=== PATIENT | male | born 1950 | race Caucasian/White ===

== ENCOUNTER → 2017-04-22 | Outpatient (CLI) | payer MEDICARE, OTHER ==
[2016-02-25 17:03] VITALS: BP 125/90
== END ==
LOC: LAB 09:08
DX: I25.5 Ischemic cardiomyopathy (principal); Z12.11 Encounter for screening for malignant neoplasm of colon; E53.8 Deficiency of other specified B group vitamins

== ENCOUNTER → 2017-05-20 | Outpatient (CLI) | payer MEDICARE, OTHER ==
[2016-02-25 17:03] VITALS: BP 125/90
== END ==
LOC: LAB 10:12
DX: Z79.01 Long term (current) use of anticoagulants (principal)

== ENCOUNTER → 2017-06-03 | Outpatient (CLI) | payer MEDICARE, OTHER ==
[2016-02-25 17:03] VITALS: BP 125/90
== END ==
LOC: LAB 14:58
DX: Z79.01 Long term (current) use of anticoagulants (principal)

== ENCOUNTER 2017-06-21 08:35 | Emergency (ER) | payer MEDICARE, OTHER ==
[2017-06-21 09:23] LABS: EOS # 0.1 (0.04-0.40); EOS % 0.7 % (0.0-4.0); HEMATOCRIT 32.8 % (42.0-52.0); LYMPH# 2.9 (1.50-4.00); MEAN CELL VOLUME 99 fl (78-100); MEAN CORPUSCULAR HEMOGLOBIN 33 pg (27-31); MEAN CORPUSCULAR HGB CONC 34 g/dL (33-37); MEAN PLATELET VOLUME 10.8 fl (7.4-10.4); MONO # 0.7 (0.20-0.80); PLATELET COUNT 293 K/mm3 (130-400); RED CELL DISTRIBUTION WIDTH 13.3 % (11.5-14.5); WHITE BLOOD COUNT 10.7 K/mm3 (4.8-10.8)
[2017-06-21 09:34] LABS: PROTHROMBIN TIME 9.2 SECONDS (9.0-12.0)
[2017-06-21 09:39] LABS: ALBUMIN 3.9 g/dL (3.5-5.0); CALCIUM 9.6 mg/dL (8.4-10.2); POTASSIUM 4.1 mmol/L (3.6-5.0); TOTAL BILIRUBIN 0.6 mg/dL (0.2-1.3); TOTAL PROTEIN 7.4 g/dL (6.3-8.2)
[2017-06-21 09:41] LABS: CKMB ISOENZYME 1.6 ng/mL (0.6-3.5)
[2017-06-21 09:45] LABS: TROPONIN-I < 0.03 ng/mL (0.00-0.06)
[2017-06-21] MEDS ORDERED: FERROUS SULFAT325 M4 PO (10:05)
[2017-06-21] MEDS ORDERED: CAPOTEN 12.512.5 MG PO (10:05)
[2017-06-21] MEDS ORDERED: CARVEDILOL6.25 MG PO (10:06)
[2017-06-21] MEDS ORDERED: NATURE'S BLEND100 M2 PO (10:06)
[2017-06-21] MEDS ORDERED: ATORVASTATIN CA40 MG PO (10:06)
[2017-06-21] MEDS ORDERED: LASIX40 M1 PO (10:09)
[2017-06-21] MEDS ORDERED: CYANOCOBAL1000 MCG/1 IM (10:09)
[2017-06-21] MEDS ORDERED: LEVOTHYROXINE0.05 MG PO (10:10)
[2017-06-21] MEDS ORDERED: OMEGA-31000 M1 PO (10:10)
[2017-06-21] MEDS ORDERED: POTASSIUM CHLO20 ME3 PO (10:10)
[2017-06-21] MEDS ORDERED: FOLIC ACID1 MG PO (10:10)
[2017-06-21] MEDS ORDERED: FLOMAX 0.40.4 MG/CAP PO (10:11)
[2017-06-21] MEDS ORDERED: NITROSTAT0.4 M1 SL (10:12)
[2017-06-21] MEDS ORDERED: ASPIR LOW81 MG PO (10:12)
[2017-06-21 13:05] VITALS: BP 123/87
== END 2017-06-21 13:09 | disposition home or self-care (01) ==
LOC: ED 08:35
PROVIDERS: Nurse Practitioner Primary Care
DX: S09.90XA Unspecified injury of head, initial encounter (principal); S51.812A Laceration without foreign body of left forearm, initial encounter; S01.112A Laceration without foreign body of left eyelid and periocular area, initial encounter; F10.10 Alcohol abuse, uncomplicated; S80.211A Abrasion, right knee, initial encounter; X58.XXXA Exposure to other specified factors, initial encounter; Y92.009 Unspecified place in unspecified non-institutional (private) residence as the place of occurrence of the external cause; I10 Essential (primary) hypertension; I25.2 Old myocardial infarction; I25.10 Atherosclerotic heart disease of native coronary artery without angina pectoris
CPT/HCPCS: J3411; J3490; J7030; L0150

== ENCOUNTER → 2017-12-02 | Outpatient (CLI) | payer MEDICARE, OTHER ==
[~2017-12-02] MED LIST: ASPIR LOW81 MG PO; ATORVASTATIN CA40 MG PO; CAPOTEN 12.512.5 MG PO; CARVEDILOL6.25 MG PO; CYANOCOBAL1000 MCG/1 IM; FERROUS SULFAT325 M4 PO; FLOMAX 0.40.4 MG/CAP PO; FOLIC ACID1 MG PO; LASIX40 M1 PO; LEVOTHYROXINE0.05 MG PO; NATURE'S BLEND100 M2 PO; NITROSTAT0.4 M1 SL; OMEGA-31000 M1 PO; POTASSIUM CHLO20 ME3 PO
[2017-12-02 10:16] LABS: EOS # 0.2 (0.04-0.40); EOS % 2.3 % (0.0-4.0); HEMOGLOBIN 12.1 g/dL (13.5-18.0); MEAN CELL VOLUME 108 fl (78-100); MEAN CORPUSCULAR HEMOGLOBIN 35 pg (27-31); MEAN CORPUSCULAR HGB CONC 33 g/dL (33-37); MEAN PLATELET VOLUME 10.9 fl (7.4-10.4); MONO # 0.9 (0.20-0.80); NEU # 5.1 (1.40-6.50); PLATELET COUNT 213 K/mm3 (130-400); RED BLOOD COUNT 3.44 M/mm3 (4.20-5.60); RED CELL DISTRIBUTION WIDTH 14.8 % (11.5-14.5); WHITE BLOOD COUNT 9.2 K/mm3 (4.8-10.8)
[2017-12-02 10:26] LABS: PROTHROMBIN TIME 9.3 SECONDS (9.0-12.0)
[2017-12-02 10:30] LABS: ALBUMIN 4.1 g/dL (3.5-5.0); BUN/CREATININE RATIO 12.1 (6.0-26.0); CALCIUM 9.7 mg/dL (8.4-10.2); TOTAL BILIRUBIN 0.8 mg/dL (0.2-1.3)
[2017-12-02 11:18] LABS: ERYTHROCYTE SEDIMENTATION RATE 22 mm/hr (0-20)
[2017-12-03 00:47] LABS: TESTOSTERONE 997 ng/dL (221-716)
== END ==
LOC: LAB 09:42
PROVIDERS: Internal Medicine
DX: I25.10 Atherosclerotic heart disease of native coronary artery without angina pectoris (principal); Z12.5 Encounter for screening for malignant neoplasm of prostate; Z12.11 Encounter for screening for malignant neoplasm of colon; N52.9 Male erectile dysfunction, unspecified; E03.9 Hypothyroidism, unspecified; E53.8 Deficiency of other specified B group vitamins; Z79.01 Long term (current) use of anticoagulants

== ENCOUNTER → 2018-06-16 | Outpatient (CLI) | payer MEDICARE, OTHER ==
[2018-06-16 12:25] LABS: EOS # 0.3 (0.04-0.40); EOS % 2.8 % (0.0-4.0); HEMATOCRIT 40.4 % (42.0-52.0); HEMOGLOBIN 13.5 g/dL (13.5-18.0); LYMPH# 3.5 (1.50-4.00); MEAN CELL VOLUME 105 fl (78-100); MEAN CORPUSCULAR HEMOGLOBIN 35 pg (27-31); MEAN CORPUSCULAR HGB CONC 33 g/dL (33-37); MEAN PLATELET VOLUME 11.1 fl (7.4-10.4); MONO # 0.9 (0.20-0.80); NEU # 5.1 (1.40-6.50); PLATELET COUNT 252 K/mm3 (130-400); RED BLOOD COUNT 3.85 M/mm3 (4.20-5.60); RED CELL DISTRIBUTION WIDTH 13.2 % (11.5-14.5); WHITE BLOOD COUNT 9.8 K/mm3 (4.8-10.8)
[2018-06-16 12:30] LABS: ALBUMIN 4.1 g/dL (3.5-5.0); CALCIUM 9.7 mg/dL (8.4-10.2); POTASSIUM 4.6 mmol/L (3.6-5.0); TOTAL BILIRUBIN 0.8 mg/dL (0.2-1.3); TOTAL PROTEIN 7.6 g/dL (6.3-8.2)
== END ==
LOC: LAB 11:53
PROVIDERS: Internal Medicine
DX: I25.10 Atherosclerotic heart disease of native coronary artery without angina pectoris (principal); E53.8 Deficiency of other specified B group vitamins; E03.9 Hypothyroidism, unspecified

== ENCOUNTER → 2018-06-23 | Outpatient (CLI) | payer MEDICARE, OTHER | LOC: RAD 14:44 | DX: I65.23 Occlusion and stenosis of bilateral carotid arteries (principal); I25.5 Ischemic cardiomyopathy; I34.0 Nonrheumatic mitral (valve) insufficiency ==

== ENCOUNTER → 2018-08-18 | Outpatient (CLI) | payer MEDICARE, OTHER ==
[2018-08-18 10:27] LABS: URINE APPEARANCE CLEAR; URINE BILIRUBIN NEGATIVE (NEGATIVE); URINE BLOOD NEGATIVE (NEGATIVE); URINE COLOR YELLOW; URINE GLUCOSE NEGATIVE (NEGATIVE); URINE KETONE 2+ (NEGATIVE); URINE LEUKOCYTE ESTERASE 1+ (NEGATIVE); URINE MUCUS PRESENT (NOT PRESENT); URINE NITRATE NEGATIVE (NEGATIVE); URINE PROTEIN(semi-quant) TRACE mg/dL (NEGATIVE); URINE UROBILINOGEN NORMAL (NORMAL)
== END ==
LOC: LAB 09:52
PROVIDERS: Psychiatry & Neurology Psychiatry
DX: N40.1 Benign prostatic hyperplasia with lower urinary tract symptoms (principal); R33.8 Other retention of urine

== ENCOUNTER → 2018-12-29 | Outpatient (CLI) | payer MEDICARE, OTHER ==
[2018-12-29 11:25] LABS: BASO # 0.1 (0.02-0.10); EOS # 0.3 (0.04-0.40); EOS % 2.3 % (0.0-4.0); HEMATOCRIT 45.3 % (42.0-52.0); HEMOGLOBIN 14.6 g/dL (13.5-18.0); LYMPH# 3.1 (1.50-4.00); MEAN CELL VOLUME 99 fl (78-100); MEAN CORPUSCULAR HEMOGLOBIN 32 pg (27-31); MEAN CORPUSCULAR HGB CONC 32 g/dL (33-37); MEAN PLATELET VOLUME 10.1 fl (7.4-10.4); MONO # 0.8 (0.20-0.80); NEU # 6.8 (1.40-6.50); PLATELET COUNT 352 K/mm3 (130-400); RED CELL DISTRIBUTION WIDTH 14.5 % (11.5-14.5); WHITE BLOOD COUNT 11.1 K/mm3 (4.8-10.8)
[2018-12-29 12:04] LABS: ALBUMIN 3.9 g/dL (3.4-4.8); CALCIUM 9.9 mg/dL (8.8-10.0); POTASSIUM 4.8 mmol/L (3.5-5.1); TOTAL BILIRUBIN 0.5 mg/dL (0.2-1.2); TOTAL PROTEIN 7.4 g/dL (6.2-8.1)
[2018-12-29 12:57] LABS: ERYTHROCYTE SEDIMENTATION RATE 8 mm/hr (0-20)
== END ==
LOC: LAB 10:51
PROVIDERS: Internal Medicine
DX: E03.9 Hypothyroidism, unspecified (principal); I25.10 Atherosclerotic heart disease of native coronary artery without angina pectoris; E53.8 Deficiency of other specified B group vitamins

== ENCOUNTER → 2019-05-25 | Outpatient (CLI) | payer MEDICARE, OTHER ==
[2019-05-25 11:08] LABS: BASO # 0.1 (0.02-0.10); EOS # 0.2 (0.04-0.40); EOS % 2.1 % (0.0-4.0); HEMATOCRIT 40.7 % (42.0-52.0); HEMOGLOBIN 13.5 g/dL (13.5-18.0); LYMPH# 2.6 (1.50-4.00); MEAN CELL VOLUME 107 fl (78-100); MEAN CORPUSCULAR HEMOGLOBIN 35 pg (27-31); MEAN CORPUSCULAR HGB CONC 33 g/dL (33-37); MEAN PLATELET VOLUME 11.5 fl (7.4-10.4); MONO # 0.8 (0.20-0.80); NEU # 6.7 (1.40-6.50); PLATELET COUNT 196 K/mm3 (130-400); RED BLOOD COUNT 3.82 M/mm3 (4.20-5.60); RED CELL DISTRIBUTION WIDTH 13.2 % (11.5-14.5); WHITE BLOOD COUNT 10.3 K/mm3 (4.8-10.8)
[2019-05-25 11:37] LABS: POTASSIUM 4.7 mmol/L (3.5-5.1)
[2019-05-25 11:38] LABS: ALBUMIN 4.1 g/dL (3.4-4.8)
[2019-05-25 11:39] LABS: CALCIUM 9.8 mg/dL (8.3-10.5)
[2019-05-25 11:40] LABS: TOTAL PROTEIN 7.4 g/dL (6.2-8.1)
[2019-05-25 11:42] LABS: TOTAL BILIRUBIN 0.7 mg/dL (0.2-1.2)
[2019-05-25 11:47] LABS: MAGNESIUM 1.83 mg/dL (1.60-2.60)
== END ==
LOC: LAB 10:48
PROVIDERS: Internal Medicine
DX: Z12.5 Encounter for screening for malignant neoplasm of prostate (principal); Z12.11 Encounter for screening for malignant neoplasm of colon; I25.10 Atherosclerotic heart disease of native coronary artery without angina pectoris; E03.9 Hypothyroidism, unspecified; E53.8 Deficiency of other specified B group vitamins

== ENCOUNTER → 2019-07-03 | Outpatient (CLI) | payer MEDICARE, OTHER | LOC: RAD 15:10 | DX: I65.23 Occlusion and stenosis of bilateral carotid arteries (principal); I25.5 Ischemic cardiomyopathy; I34.0 Nonrheumatic mitral (valve) insufficiency ==

== ENCOUNTER 2021-03-20 13:05 | Emergency (ER) | payer MEDICARE, OTHER ==
[2021-03-20 13:43] LABS: BASO # 0.01 (0.02-0.10); EOS # 0.02 (0.04-0.40); EOS % 0.1 % (0.0-4.0); HEMATOCRIT 33.2 % (42.0-52.0); HEMOGLOBIN 10.3 g/dL (13.5-18.0); LYMPH# 2.14 (1.50-4.00); MEAN CELL VOLUME 116 fl (78-100); MEAN CORPUSCULAR HEMOGLOBIN 36 pg (27-31); MEAN CORPUSCULAR HGB CONC 31 g/dL (33-37); NEU # 15.44 (1.40-6.50); PLATELET COUNT 369 K/mm3 (130-400); RED BLOOD COUNT 2.86 M/mm3 (4.20-5.60); RED CELL DISTRIBUTION WIDTH 14.4 % (11.5-14.5)
[2021-03-20 13:55] LABS: POTASSIUM 4.5 mmol/L (3.5-5.1); SODIUM 158 mmol/L (136-145)
[2021-03-20 13:56] LABS: ALBUMIN 3.1 g/dL (3.4-4.8); CALCIUM 9.9 mg/dL (8.3-10.5)
[2021-03-20 13:58] LABS: TOTAL PROTEIN 6.9 g/dL (6.2-8.1)
[2021-03-20 13:59] LABS: GLUCOSE 97 mg/dL (75-110); TOTAL BILIRUBIN 0.5 mg/dL (0.2-1.2)
[2021-03-20 14:03] LABS: AST-SGOT 12 U/L (5-34)
[2021-03-20 14:06] LABS: ALT/SGPT 15 U/L (0-55); LIPASE 29 U/L (8-78)
[2021-03-20 14:14] LABS: TROPONIN-I 0.13 ng/mL (<0.030)
[2021-03-20 14:18] LABS: CARBON DIOXIDE 17 mmol/L (23-31)
[2021-03-20 14:19] LABS: ALCOHOL IN-HOUSE < 10 mg/dL (<10)
[2021-03-20 15:21] LABS: URINE APPEARANCE HAZY; URINE COLOR AMBER
[2021-03-20 15:22] LABS: URINE BILIRUBIN 2+ (NEGATIVE); URINE BLOOD TRACE (NEGATIVE); URINE GLUCOSE NEGATIVE (NEGATIVE); URINE KETONE TRACE (NEGATIVE); URINE LEUKOCYTE ESTERASE 1+ (NEGATIVE); URINE NITRATE NEGATIVE (NEGATIVE); URINE PROTEIN(semi-quant) TRACE mg/dL (NEGATIVE); URINE UROBILINOGEN NORMAL (NORMAL)
[2021-03-20 18:09] LABS: BASO # 0.01 (0.02-0.10); EOS # 0.02 (0.04-0.40); EOS % 0.1 % (0.0-4.0); HEMATOCRIT 31.8 % (42.0-52.0); LYMPH# 2.26 (1.50-4.00); MEAN CELL VOLUME 116 fl (78-100); MEAN CORPUSCULAR HEMOGLOBIN 37 pg (27-31); MEAN CORPUSCULAR HGB CONC 31 g/dL (33-37); MEAN PLATELET VOLUME 11.4 fl (7.4-10.4); MONO # 0.82 (0.20-0.80); NEU # 13.76 (1.40-6.50); PLATELET COUNT 324 K/mm3 (130-400); RED BLOOD COUNT 2.74 M/mm3 (4.20-5.60); RED CELL DISTRIBUTION WIDTH 14.3 % (11.5-14.5); WHITE BLOOD COUNT 17.2 K/mm3 (4.8-10.8)
[2021-03-20 18:19] LABS: POTASSIUM 4.1 mmol/L (3.5-5.1); SODIUM 153 mmol/L (136-145)
[2021-03-20 18:21] LABS: CALCIUM 9.3 mg/dL (8.3-10.5); GLUCOSE 141 mg/dL (75-110)
[2021-03-20 18:22] LABS: CARBON DIOXIDE 20 mmol/L (23-31)
[2021-03-20 18:33] LABS: TROPONIN-I 0.14 ng/mL (<0.030)
[2021-03-20 21:12] VITALS: BP 103/62
== END 2021-03-20 21:15 | disposition short-term general hospital (02) ==
LOC: ED 13:05
PROVIDERS: Nurse Practitioner
DX: N17.9 Acute kidney failure, unspecified (principal); R74.8 Abnormal levels of other serum enzymes; E87.0 Hyperosmolality and hypernatremia; D72.829 Elevated white blood cell count, unspecified; I25.10 Atherosclerotic heart disease of native coronary artery without angina pectoris; Z20.822 Contact with and (suspected) exposure to COVID-19
CPT/HCPCS: A4340; J7070; J7120